=== PATIENT | female | born 1965 | race Caucasian/White ===

== ENCOUNTER 2022-12-17 01:47 | Emergency (ER) | payer OTHER, SELFPAY ==
[2022-12-17 01:50] VITALS: BP 148/70; PULSE 80; RESP 16; TEMP 36.5; O2SAT 97; BMI 29.2
--- NOTE | 2022-12-17 01:50 | ED.GENADUL1 ---
HPI - General Adult General Chief complaint: Ear Stated complaint: bug in her ear rt Time Seen by Provider: 12/17/22 01:50 History of Present Illness HPI narrative: Patient presents to emergency department complaining of about into the right ear. She states she was sleeping and started feeling like there was a bug crawling in her right ear. She denies any pain. She states just feels annoying. She came straight to the emergency department. She did not try to hold. She has not been sick with anything. Related Data Allergies Allergy/AdvReac Type Severity Reaction Status Date / Time No Known Drug Allergies Allergy Verified 12/17/22 01:58 Review of Systems ROS Status of ROS 10 or more systems reviewed and unremarkable except as noted in history and below Exam Narrative Exam Narrative: Nurses notes and vital signs reviewed and patient is not hypoxic. General: Nontoxic, Well-appearing and in no apparent distress. Skin: Warm, dry, no pallor noted. No Rash Head: Normocephalic, atraumatic. Neck: Supple, non-tender. Eye: Pupils are equal, round and EOMI. No scleral icterus. Ears, Nose, Mouth, and Throat: TM clear, There is no insect consistent with an and running around. It walked himself into the otoscope as the light was shining on it. no posterior oropharynx erythema or nasal mucosal hypertrophy, uvula is mid-line Oral mucosa is moist Cardiovascular: Regular Rate and Rhythm without murmur, gallop or rub. Respiratory: No accessory muscle use or respiratory distress. Lungs are clear to auscultation, no wheezing, rales or rhonchi Chest Wall: no tenderness Back: No midline thoracic or lumbar vertebral tenderness. No CVA tenderness Musculoskeletal: normal ROM, no calf or popliteal tenderness, no lower extremity edema/swelling GI: Abdomen is soft, non-distended. Normal bowel sounds. No masses appreciated. No tenderness to palpation. No rebound, guarding, or rigidity noted. Neurological: A&O x4. No cranial nerve dysfunction observed. No truncal ataxia. Moves all extremities. Sensation intact. Psychiatric: Cooperative and interactive. Normal mood and affect. Constitutional Vital Signs, click to edit/add: Last Vital Signs Temp 97.7 F 12/17/22 01:50 Pulse 80 12/17/22 01:50 Resp 16 12/17/22 01:50 BP 148/70 H 12/17/22 01:50 Pulse Ox 97 12/17/22 01:50 O2 Del Method Room Air 12/17/22 01:50 Course Vital Signs Vital signs: Vital Signs Temperature 97.7 F 12/17/22 01:50 Pulse Rate 80 12/17/22 01:50 Respiratory Rate 16 12/17/22 01:50 Blood Pressure 148/70 H 12/17/22 01:50 Pulse Oximetry 97 12/17/22 01:50 Oxygen Delivery Method Room Air 12/17/22 01:50 Temperature 97.7 F 12/17/22 01:50 Pulse Rate 80 12/17/22 01:50 Respiratory Rate 16 12/17/22 01:50 Blood Pressure 148/70 H 12/17/22 01:50 Pulse Oximetry 97 12/17/22 01:50 Oxygen Delivery Method Room Air 12/17/22 01:50 Medical Decision Making MDM Narrative Medical decision making narrative: ant was removed with the otoscope. Patient felt better. At this time the patient is without objective evidence of an acute process requiring hospitalization or inpatient management. The patient has remained hemodynamically stable. No additional indication for emergent studies at this time. I answered all questions. Discussed discharge instructions including standard anticipatory guidance and what should prompt a return to the emergency department, including if they get worse are not getting better or develops any new or concerning symptoms. I've given them specific time frame in which to follow-up, and who to follow-up with. The patient demonstrates understanding. Patient is nontoxic and stable for discharge with outpatient follow-up. This note was created with the assistance of a speech recognition program. Although the intention is to generate documents that actually reflects the content of the visit, no guarantees can be provided that every mistake has been identified and corrected by editing. Discharge Plan Discharge Chief Complaint: Ear Clinical Impression: Foreign body of ear, right Patient Disposition: Home, Self-Care Time of Disposition Decision: 01:56 Condition: Good Mode of Transportation: Private Vehicle Instructions: Ear Foreign Body (ED) Stand Alone Forms: Portal Instructions Discharge Date/Time: 12/17/22 02:24
--- NOTE | 2022-12-17 01:57 | PC.NURSE ---
at cart side t look into ears. When she shined the light in the right ear the FB (ant) crawled into the otoscope Patient felt immediate relief.
== END 2022-12-17 02:24 | disposition home or self-care (01) ==
PROVIDERS: Emergency Provider Emergency Medicine; PCP Nurse Practitioner
DX: T16.1XXA Foreign body in right ear, initial encounter (principal)
CPT/HCPCS: 69200; 99281

== ENCOUNTER 2022-12-26 11:19 | Outpatient (OUT) | payer OTHER, SELFPAY ==
[2022-12-26 12:15] LABS: Microalbumin Urine Random <1.3 mg/dL (<=30.0)
[2022-12-26 12:19] LABS: Estimated Average Glucose 131 mg/dL; Glycohemoglobin A1C 6.2 % (4.5-6.2)
[2022-12-26 12:31] LABS: Basophils Absolute Auto 0.1 10^3/uL (0.0-0.1); Basophils Percent Auto 0.8 % (0.2-2.0); Eosinophils Absolute Auto 0.1 10^3/uL (0.0-0.7); Eosinophils Percent Auto 1.3 % (0.9-7.0); Hematocrit 42.6 % (36.0-48.0); Hemoglobin 13.9 g/dL (12.0-16.0); Immature Granulocytes Abs Auto 0.05 10^3/uL (0.00-0.03); Immature Granulocytes Pct Auto 0.5 % (0.0-0.5); Lymphocytes Absolute Auto 2.7 10^3/uL (1.2-3.8); Lymphocytes Percent Auto 29.6 % (20.5-60.0); Mean Corpuscular HGB Conc 32.6 g/dL (29.9-35.2); Mean Corpuscular Hemoglobin 29.2 pg (26.7-34.0); Mean Corpuscular Volume 89.5 fL (81.0-99.0); Mean Platelet Volume 10.6 fL (9.5-13.5); Monocytes Absolute Auto 0.5 10^3/uL (0.3-0.8); Monocytes Percent Auto 5.8 % (1.7-12.0); Neutrophils Absolute Auto 5.7 10^3/uL (1.4-6.5); Platelet Count 305 10^3/uL (150-450); Red Blood Count 4.76 10^6/uL (4.20-5.40); Red Cell Distribution Width 13.5 % (11.0-15.0); White Blood Count 9.3 10^3/uL (4.0-11.0)
[2022-12-26 13:03] LABS: Alanine Aminotransferase 22 U/L (14-59); Albumin Globulin Ratio 0.8; Albumin Level 3.3 g/dL (3.4-5.0); Alkaline Phosphatase 113 U/L (46-116); Anion Gap 10.3; Aspartate Amino Transferase 14 U/L (15-37); BUN Creatinine Ratio 15.9; Bilirubin Total 0.3 mg/dL (0.2-1.0); Carbon Dioxide 28.7 mmol/L (21.0-32.0); Chloride 100 mmol/L (98-107); Chol HDL Ratio 3.6; Cholesterol 179 mg/dL (<=200); Estimated GFR (African America >60 (>=60); Estimated GFR (Non-African Ame >60 (>=60); Globulin 4.2 g/dL; Glucose 107 mg/dL (74-106); HDL Cholesterol 50 mg/dL (40-60); Sodium 135 mmol/L (136-145); Total Protein 7.5 g/dL (6.4-8.2); Triglycerides 154 mg/dL (<=150); VLDL CHOLESTEROL 30.8 mg/dL
[2022-12-26 14:27] LABS: Bilirubin Urine NEGATIVE (NEGATIVE); Blood Urine NEGATIVE (NEGATIVE); Clarity Urine CLEAR (CLEAR); Color Urine YELLOW (YELLOW); Glucose Urine UA NEGATIVE (NEGATIVE); Ketones Urine NEGATIVE (NEGATIVE); Leukocyte Esterase Urine NEGATIVE (NEGATIVE); Nitrite Urine NEGATIVE (NEGATIVE); Protein Urine NEGATIVE (NEG/TRACE); Urobilinogen Urine 0.2 EU/dL (0.2-1.0); pH Urine 5.5 (5.0-9.0)
[2022-12-26 14:41] LABS: RBC Urine NONE SEEN #/HPF (0-2); WBC Urine 0-2 #/HPF (NONE SEEN)
[2022-12-26 14:42] LABS: Bacteria Urine MODERATE #/HPF (NONE SEEN); Mucus Urine MODERATE (NONE SEEN)
[2022-12-26 14:43] LABS: Squamous Epithelial Cell Urine MANY #/LPF (NONE/RARE)
== END 2022-12-26 11:20 | disposition home or self-care (01) ==
LOC: LAB 11:22
PROVIDERS: PCP Nurse Practitioner; Visit Provider Nurse Practitioner
DX: E11.9 Type 2 diabetes mellitus without complications (principal); E78.5 Hyperlipidemia, unspecified; D64.9 Anemia, unspecified; R82.90 Unspecified abnormal findings in urine
CPT/HCPCS: 36415; 80053; 80061; 81001; 82043; 83036; 85025; 87086

== ENCOUNTER 2023-09-18 08:38 | Outpatient (OUT) | payer OTHER, SELFPAY ==
[2023-09-18 09:21] LABS: Basophils Absolute Auto 0.1 10^3/uL (0.0-0.1); Basophils Percent Auto 0.5 % (0.2-2.0); Eosinophils Absolute Auto 0.1 10^3/uL (0.0-0.7); Eosinophils Percent Auto 0.8 % (0.9-7.0); Hematocrit 43.1 % (36.0-48.0); Immature Granulocytes Abs Auto 0.02 10^3/uL (0.00-0.03); Immature Granulocytes Pct Auto 0.2 % (0.0-0.5); Lymphocytes Absolute Auto 2.8 10^3/uL (1.2-3.8); Lymphocytes Percent Auto 25.9 % (20.5-60.0); Mean Corpuscular HGB Conc 32.5 g/dL (29.9-35.2); Mean Corpuscular Hemoglobin 29.5 pg (26.7-34.0); Mean Corpuscular Volume 90.7 fL (81.0-99.0); Mean Platelet Volume 10.7 fL (9.5-13.5); Monocytes Absolute Auto 0.7 10^3/uL (0.3-0.8); Monocytes Percent Auto 6.2 % (1.7-12.0); Neutrophils Absolute Auto 7.3 10^3/uL (1.4-6.5); Neutrophils Percent Auto 66.4 % (43.0-75.0); Platelet Count 264 10^3/uL (150-450); Red Blood Count 4.75 10^6/uL (4.20-5.40); Red Cell Distribution Width 13.2 % (11.0-15.0); White Blood Count 10.9 10^3/uL (4.0-11.0)
[2023-09-18 09:27] LABS: Estimated Average Glucose 128 mg/dL; Glycohemoglobin A1C 6.1 % (4.5-6.2)
[2023-09-18 10:34] LABS: Alanine Aminotransferase 25 U/L (14-59); Albumin Globulin Ratio 0.8; Albumin Level 3.2 g/dL (3.4-5.0); Alkaline Phosphatase 120 U/L (46-116); Anion Gap 11.8; Aspartate Amino Transferase 19 U/L (15-37); BUN Creatinine Ratio 19.7; Bilirubin Total 0.2 mg/dL (0.2-1.0); Calcium 9.4 mg/dL (8.5-10.1); Carbon Dioxide 29.6 mmol/L (21.0-32.0); Chloride 104 mmol/L (98-107); Chol HDL Ratio 2.6; Cholesterol 154 mg/dL (<=200); Estimated GFR (African America >60 (>=60); Estimated GFR (Non-African Ame >60 (>=60); Glucose 113 mg/dL (74-106); HDL Cholesterol 59 mg/dL (40-60); LDL Cholesterol Calculated 82.2 mg/dL; Potassium 4.4 mmol/L (3.5-5.1); Sodium 141 mmol/L (136-145); Total Protein 7.2 g/dL (6.4-8.2); Triglycerides 64 mg/dL (<=150); VLDL CHOLESTEROL 12.8 mg/dL
[2023-09-18 10:50] LABS: Creatinine Urine Random 24.15 mg/dL (20.00-300.00); Microalbum Creatinine Ratio Ur 53.8 mg/g (0.0-29.9); Microalbumin Urine Random <1.3 mg/dL (<=30.0)
== END 2023-09-18 08:39 | disposition home or self-care (01) ==
LOC: LAB 08:41
PROVIDERS: PCP Nurse Practitioner; Visit Provider Nurse Practitioner
DX: I25.10 Atherosclerotic heart disease of native coronary artery without angina pectoris (principal); Z72.0 Tobacco use; E11.51 Type 2 diabetes mellitus with diabetic peripheral angiopathy without gangrene; I70.209 Unspecified atherosclerosis of native arteries of extremities, unspecified extremity; I10 Essential (primary) hypertension; E78.00 Pure hypercholesterolemia, unspecified
CPT/HCPCS: 36415; 80053; 80061; 82043; 82570; 83036; 85025; 87086

== ENCOUNTER 2023-10-17 13:13 | Outpatient (OUT) | payer OTHER, SELFPAY ==
--- NOTE | 2023-10-17 13:17 | US_ITS ---
[address] [address] Patient Name: YORDY PAGE MRN: [id number] date: 1965 Sex: F Assigned Patient Location: MAMMO Current Patient Location: Accession/Order Number: [id number] Exam Date: 10/17/2023 13:20 Report Date: 10/18/2023 06:47 At the request of: ROGERIO OLIVA Procedure: US carotid duplex BI EXAMINATION: US carotid duplex BI HISTORY: Peripheral Artery Disease I73.9 Left Carotid Bruit COMPARISON: No relevant comparison available. TECHNIQUE: Duplex Doppler ultrasound analysis of carotid and vertebral arteries. . Bilateral carotid arterial duplex examination was performed using B-mode, color flow and spectral analysis. Carotid stenosis is reported according to validated velocity parameters, similar to NASCET criteria. FINDINGS: RIGHT CAROTID ARTERY: Mild-moderate plaque within bulb and proximal ICA. RIGHT VERTEBRAL: Antegrade flow. Subclavian: PSV: 77.9 cm/s EDV: 9.8 cm/s CCA: Prox: PSV: 55.9 cm/s EDV: 13.1 cm/s Mid: PSV: 75.7 cm/s EDV: 26.3 cm/s Distal: PSV: 72.4 cm/s EDV: 28.5 cm/s BULB: PSV: 65.8 cm/s EDV: 23.0 cm/s ICA: Prox: PSV: 80.1 cm/s EDV: 24.1 cm/s Mid: PSV: 91.9 cm/s EDV: 32.1 cm/s Distal: PSV: 98.3 cm/s EDV: 43.4 cm/s ECA: PSV: 82.2 cm/s EDV: 17.6 cm/s VERTEBRAL: PSV: 101.5 cm/s EDV: 32.1 cm/s ICA/CCA ratio: PSV: 1.4 EDV: 1.5 LEFT CAROTID ARTERY: Moderate plaque within the carotid bulb resulting in up to 79% area reduction. LEFT VERTEBRAL: Antegrade flow. Subclavian: PSV: 118.1 cm/s EDV: 0.0 cm/s CCA: Prox: PSV: 87.1 cm/s EDV: 25.7 cm/s Mid: PSV: 96.7 cm/s EDV: 30.5 cm/s Distal: PSV: 80.6 cm/s EDV: 25.7 cm/s BULB: PSV: 96.7 cm/s EDV: 32.1 cm/s ICA: Prox: PSV: 106.4 cm/s EDV: 40.2 cm/s Mid: PSV: 96.7 cm/s EDV: 27.3 cm/s Distal: PSV: 91.9 cm/s EDV: 35.4 cm/s ECA: PSV: 90.2 cm/s EDV: 12.7 cm/s VERTEBRAL: PSV: 45.0 cm/s EDV: 16.4 cm/s ICA/CCA ratio: PSV: 1.3 EDV: 1.6 US/US carotid duplex BI IMPRESSION: 1. 0-49% flow stenosis within the right left carotid arteries. 2. Mild atherosclerotic disease of right bulb and proximal ICA. 3. Moderate-marked atherosclerotic disease of left carotid bulb with up to 79% area reduction. No significant change in flow velocity. Spectral Doppler US Thresholds Stenosis (%) PSV (cm/sec) VICA/VCCA 0-49 <150 <2.5 50-69 150-225 2.5-4.0 >70 >225 >4.0 Electronically authenticated by: CHERYL GILLILAND Date: 10/18/2023 06:47
--- NOTE | 2023-10-17 13:38 | MM_ITS ---
Patient Name: YORDY PAGE MR#: [id number] : 1965 Exam Date: 10/17/2023 Ordering Doctor: SATHYA Cox CNP RADIOLOGY REPORT PROCEDURE: MM TOMOSYNTHESIS SCREENING BI COMPARISON: MG MAMM SCREEN YANDY W CAD, 11/05/2019. MG MAMM SCREEN YANDY W CAD, 03/12/2018. MG MAMM RT DIAG FU, 02/02/2017. MG MAMM SCREEN YANDY W CAD, 01/23/2017. INDICATIONS: Screening Calculator Name NCI Breast Cancer Risk Assessment Tool 5 Year Breast Cancer Risk 0.90% Lifetime Breast Cancer Risk 5.70% Personal Breast Cancer No Personal Ovarian Cancer No Treatments None Family Cancers None LOCATION: [facility] BREAST COMPOSITION: There are scattered areas of fibroglandular density. FINDINGS: DIAGNOSTIC CATEGORY 2--BENIGN FINDING: RIGHT BREAST: No significant suspicious finding. No significant change has occurred. LEFT BREAST: No significant suspicious finding. Stable small chronic nodule anterior upper-outer quadrant. No significant change has occurred. RECOMMENDATIONS: ROUTINE MAMMOGRAM AND CLINICAL EVALUATION IN 12 MONTHS. PLEASE NOTE: A NORMAL MAMMOGRAM DOES NOT EXCLUDE THE POSSIBILITY OF BREAST CANCER. A CLINICALLY SUSPICIOUS PALPABLE LUMP SHOULD BE BIOPSIED. Dictated by: Terrence Lassiter M.D. on 10/17/2023 at 15:30 Approved by: Terrence Lassiter M.D. on 10/17/2023 at 15:33
== END 2023-10-17 13:14 | disposition home or self-care (01) ==
LOC: MAMMO 13:13
PROVIDERS: PCP Nurse Practitioner; Visit Provider Nurse Practitioner
DX: I73.9 Peripheral vascular disease, unspecified (principal); R09.89 Other specified symptoms and signs involving the circulatory and respiratory systems; Z12.31 Encounter for screening mammogram for malignant neoplasm of breast
CPT/HCPCS: 77063; 77067; 93880

== ENCOUNTER 2023-11-28 12:51 | Emergency (ER) | payer OTHER, SELFPAY ==
[2023-11-28 12:55] VITALS: BP 130/76; PULSE 83; TEMP 36.8; O2SAT 98; BMI 29.1
--- OUTSIDE RECORDS SUMMARY | 2023-11-28 13:06 | XMS_ITS | CCD ---
Author Organization [facility] Care Team Providers Care Cardroom Plastic Card Grader Name Role Phone PHYSICIAN, DEFAULT Unavailable Unavailable PHYSICIAN, DEFAULT Unavailable Unavailable [place], EHAB A Unavailable Unavailable [place], EHAB A Unavailable Unavailable UNKNOWN, PHYSICIAN Unavailable Unavailable AICHHOLZ, ANA Unavailable Unavailable AICHHOLZ, VOLUNTEER PATIENT REPRESENTATIVE ANA Primary Care Unavailable AICHHOLZ, VOLUNTEER PATIENT REPRESENTATIVE ANA Admitting Unavailable AICHHOLZ, VOLUNTEER PATIENT REPRESENTATIVE ANA Attending Unavailable AICHHOLZ, VOLUNTEER PATIENT REPRESENTATIVE ANA Primary Care Unavailable AICHHOLZ, VOLUNTEER PATIENT REPRESENTATIVE ANA Admitting Unavailable AICHHOLZ, VOLUNTEER PATIENT REPRESENTATIVE ANA Attending Unavailable AICHHOLZ, VOLUNTEER PATIENT REPRESENTATIVE ANA Consulting Unavailable AICHHOLZ, VOLUNTEER PATIENT REPRESENTATIVE ANA Primary Care Unavailable AICHHOLZ, VOLUNTEER PATIENT REPRESENTATIVE ANA Admitting Unavailable AICHHOLZ, VOLUNTEER PATIENT REPRESENTATIVE ANA Attending Unavailable AICHHOLZ, VOLUNTEER PATIENT REPRESENTATIVE ANA Consulting Unavailable AICHHOLZ, VOLUNTEER PATIENT REPRESENTATIVE ANA Primary Care Unavailable AICHHOLZ, VOLUNTEER PATIENT REPRESENTATIVE ANA Admitting Unavailable AICHHOLZ, VOLUNTEER PATIENT REPRESENTATIVE ANA Attending Unavailable STEPHANIE PADILLA Consulting Unavailable AICHHOLZ, VOLUNTEER PATIENT REPRESENTATIVE ANA Attending Unavailable AICHHOLZ, VOLUNTEER PATIENT REPRESENTATIVE ANA Consulting Unavailable AICHHOLZ, VOLUNTEER PATIENT REPRESENTATIVE ANA Primary Care Unavailable AICHHOLZ, VOLUNTEER PATIENT REPRESENTATIVE ANA Admitting Unavailable AICHHOLZ, ANA Attending Unavailable AICHHOLZ, ANA Attending Unavailable J LUIS SANCHEZ Attending Unavailable AICHHOLZ, ANA J Referring Unavailable AICHHOLZ, ANA J Primary Care Unavailable FAVIAN, DAVID Attending Unavailable AICHHOLZ, ANA J Referring Unavailable AICHHOLZ, ANA J Primary Care Unavailable FAVIAN, DAVID Referring Unavailable AICHHOLZ, ANA J Primary Care Unavailable Problems Problem Classification Problem Date Documented Date Episodic/Chronic Abdominal hernia (3 sources) Incisional hernia without obstruction or gangrene; Translations: [Unspecified abdominal hernia without obstruction or gangrene] Onset: 11-02-2023 Episodic Chronic obstructive pulmonary disease and bronchiectasis (2 sources) Chronic obstructive pulmonary disease, unspecified; Translations: [CHRONIC OBSTRUCTIVE PULMONARY DISEASE, UNSPECIFIED] Onset: 04-03-2018 Chronic Coronary atherosclerosis and other heart disease (1 source) Atherosclerotic heart disease of [place] coronary artery without angina pectoris; Translations: [ATHSCL HEART DISEASE OF [place] CORONARY ARTERY W/O ANG PCTRS] Onset: 04-03-2018 Chronic Diabetes mellitus without complication (4 sources) Type 2 diabetes mellitus without complications; Translations: [TYPE 2 DM WITHOUT COMPLICATIONS] Onset: 06-28-2022 Chronic Disorders of lipid metabolism (1 source) Hyperlipidemia, unspecified; Translations: [HYPERLIPIDEMIA, UNSPECIFIED] Onset: 04-03-2018 Chronic Nonspecific chest pain (1 source) Chest pain, unspecified; Translations: [CHEST PAIN, UNSPECIFIED] Onset: 04-03-2018 Episodic Occlusion or stenosis of precerebral arteries (1 source) Occlusion and stenosis of bilateral carotid arteries; Translations: [Occlusion and stenosis of bilateral carotid arteries] Onset: 11-02-2023 Chronic Other aftercare (1 source) longterm (current) use of aspirin; Translations: [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] Onset: 04-03-2018 Episodic Other infections; including parasitic (1 source) Trichomonal vulvovaginitis; Translations: [TRICHOMONAL VULVOVAGINITIS] Onset: 06-29-2022 Episodic Other lower respiratory disease (1 source) Shortness of breath; Translations: [SHORTNESS OF BREATH] Onset: 04-03-2018 Episodic Other lower respiratory disease (1 source) Hypoxemia; Translations: [HYPOXEMIA] Onset: 04-03-2018 Episodic Other nervous system disorders (1 source) Claudication Onset: 11-02-2023 Episodic Other screening for suspected conditions (not mental disorders or infectious disease) (4 sources) Abnormal result of other cardiovascular function study; Translations: [ABNORMAL RESULT OF OTHER CARDIOVASCULAR FUNCTION STUDY] Onset: 04-03-2018 Episodic Peripheral and visceral atherosclerosis (1 source) Peripheral vascular disease, unspecified; Translations: [Peripheral vascular disease, unspecified] Onset: 12-11-2019 Chronic Substance-related disorders (5 sources) Nicotine dependence, unspecified, uncomplicated; Translations: [Nicotine dependence, cigarettes, uncomplicated] Onset: 04-03-2018 Chronic Unclassified (2 sources) Unknown / UNK(Unknown) Onset: 04-03-2018 Unclassified (1 source) peripheral artery disease) Onset: 11-02-2023 Unclassified (1 source) New Patient Onset: 11-14-2023 Results Test Name Value Interpretation Reference Range Facility CULTURE URINEon 06-28-2022 CULTURE URINE Culture Observations : NO GROWTH. Normal [facility] Comment on above: Performed By: #### URCX #### [facility] [address] [address] [address] Obdulia Ahumada GLYCOHEMOGLOBIN A1Con 2022 ADA RECOMMENDATION SEE BELOW Normal [facility] Comment on above: Result Comment: ADA RECOMMENDED LIMIT 4. 0 - 6.0 ADA THERAPEUTIC TARGET < 7.0 ACTION SUGGESTED > 7.0 Performed By: #### A 1C #### [facility] [address] [place] [address] Dr. Obdulia Ahumada Glucose [Mass/Vol] 131 mg/dL Normal [facility] Comment on above: Performed By: #### A1C #### [facility] [address] [address] [address] Obdulia Ahumada HbA1c (Bld) [Mass fraction] 6.2 % Normal 4.5-6.2 [facility] Comment on above: Performed By: #### A1C #### [facility] [address] [place] [address] Dr. Obdulia Ahumada PROF CHEM 8 (BAS METB)on Anion gap [Moles/Vol] 13.7 mmol/L Normal [facility] Comment on above: Performed By: #### BMP #### [facility] [address] [place] [address] Dr. Obdulia Ahumada Calcium [Mass/Vol] 9.1 mg/dL Normal 8.5-10.1 [facility] Comment on above: Performed By: #### BMP #### [facility] [address] [place] [address] Dr. Obdulia Ahumada Chloride [Moles/Vol] 103 mmol/L Normal 98-107 [facility] Comment on above: Performed By: #### BMP #### [facility] [address] [address] [address] Obdulia Ahumada CO2 [Moles/Vol] 26.5 mmol/L Normal 21.0-32.0 [facility] Comment on above: Performed By: #### BMP #### [facility] [address] [address] [address] Obdulia Ahumada Creatinine [Mass/Vol] 0.61 mg/dL Normal 0.55-1.02 [facility] Comment on above: Performed By: #### BMP #### [facility] [address] [address] [address] Obdulia Ahumada EGFR-AF MARSHALLESE >60 Normal >=60 [facility] Comment on above: Performed By: #### BMP #### [facility] [address] [place] [address] Dr. Obdulia Ahumada EGFR-NON AF MARSHALLESE >60 Normal >=60 [facility] Comment on above: Performed By: #### BMP #### [facility] [address] [place] [address] Dr. Obdulia Ahumada Glucose [Mass/Vol] 114 mg/dL Critically high 74-106 [facility] Comment on above: Performed By: #### BMP #### [facility] [address] [address] [address] Obdulia Ahumada Potassium [Moles/Vol] 4.2 mmol/L Normal 3.5-5.1 [facility] Comment on above: Performed By: #### BMP #### [facility] [address] [address] [address] Obdulia Ahumada Sodium [Moles/Vol] 139 mmol/L Normal 136-145 [facility] Comment on above: Performed By: #### BMP #### [facility] [address] [place] [address] Dr. Obdulia Ahumada Urea nitrogen [Mass/Vol] 8.0 mg/dL Normal 7.0-18.0 [facility] Comment on above: Performed By: #### BMP #### [facility] [address] [place] [address] Dr. Obdulia Ahumada Urea nitrogen/Creatin ine [Mass ratio] 13.1 mg/mg Normal [facility] Comment on above: Performed By: #### BMP #### [facility] [address] [place] [address] LUNG CANCER SCREENINGon 0 06-18-[address] SCREENING CT Low Dose Lung Cancer Screening History: Screening for lung cancer, smoking. Current smoker Comparison: None Technique: Helical acquisition Low dose CT chest. Images reviewed in lung, soft tissue and bone windows. Findings: [All follow up of nodules are based on ACR guidelines for lung cancer screening and measurements of each nodule size must be the mean of the longest 2 axial plane perpendiculars] Nodules: No suspicious nodules by size criteria. Subtle, punctate centrilobular densities in the lung apices representing respiratory bronchiolitis. Calcified granulomas are present. Emphysema: Mild Mosaic attenuation: Minimal Bronchial wall thickening: Mild. Bronchiectasis: No Coronary artery calcium: Moderate Other portions of the chest: Normal size heart, thoracic aorta and pulmonary artery. No consolidation or pleural effusion. No suspicious lymphadenopathy in the chest. Upper abdomen: Limited. Bones: No aggressive or destructive lesion Impression: 1. ACR Assessment Category: Lung-RADS Category 1. Negative . Recommendation: Lung-RADS Category 1. Negative, continue annual screening. . Regarding coronary artery calcium, there is a growing consensus that reports for nongated low dose chest CT should include assessment of coronary artery calcium. A simple visual assessment, mild, moderate, or heavy coronary artery calcium is comparable to a Agatston scoring and strongly associated with outcomes ( related to coronary artery disease and all cause mortality). Mild is defined as isolated flecks in the coronary distribution (Agatston score <100). Heavy implies continuous or lengthy coronary artery calcium (Agatston score >1000). Moderate is for patients falling between these two extremes (Agatston score 101-1000). https://pubs.rsna.org/doi/abs/10. 1148/radiol.95994555 Download the LungRADS Assessment Categories table at this site: http://www.acr.org/Quality-Safety /Resources/LungRADS Electronically authenticated by: STEPHANIE PADILLA Date: 2022-06-18 17:41 Normal [facility] CBC AUTO DIFFon 10-27-2021 BASO # 0.1 103/ul Normal 0.0-0.1 [facility] Comment on above: Performed By: #### CBC #### [facility] [address] [place] [address] Dr. Obdulia Ahumada Basophils/100 WBC (Bld) 0.6 % Normal 0.2-2.0 [facility] Comment on above: Performed By: #### CBC #### [facility] [address] [place] [address] Dr. Obdulia Ahumada EO # 0.1 103/ul Normal 0.0-0.7 [facility] Comment on above: Performed By: #### CBC #### [facility] [address] [place] [address] Dr. Obdulia Ahumada Eosinophils/100 WBC (Bld) 1.5 % Normal 0.9-7.0 [facility] Comment on above: Performed By: #### CBC #### [facility] [address] [place] [address] Dr. Obdulia Ahumada Erythrocyte distribution width (RBC) [Ratio] 13.7 % Normal 11.0-15.0 [facility] Comment on above: Performed By: #### CBC #### [facility] [address] [place] [address] Dr. Obdulia Ahumada Hematocrit (Bld) [Volume fraction] 43.0 % Normal 36.0-48.0 [facility] Comment on above: Performed By: #### CBC #### [facility] [address] [place] [address] Dr. Obdulia Ahumada Hemoglobin (Bld) [Mass/Vol] 13.7 g/dL Normal 12.0-16.0 [facility] Comment on above: Performed By: #### CBC #### [facility] [address] [place] [address] Dr. Obdulia Ahumada IG # 0.02 10e3/ul Normal 0.00-0.03 [facility] Comment on above: Performed By: #### CBC #### [facility] [address] [place] [address] Dr. Obdulia Ahumada IG % 0.2 % Normal 0.0-0.5 [facility] Comment on above: Performed By: #### CBC #### [facility] [address] [place] [address] Dr. Obdulia Ahumada LYMPH # 2.9 103/ul Normal 1.2-3.8 [facility] Comment on above: Performed By: #### CBC #### [facility] [address] [place] [address] Dr. Obdulia Ahumada Lymphocytes/100 WBC (Bld) 32.4 % Normal 20.5-60.0 [facility] Comment on above: Performed By: #### CBC #### [facility] [address] [place] [address] Dr. Obdulia Ahumada MANUAL DIFF REQ NO Normal [facility] Comment on above: Performed By: #### CBC #### [facility] [address] [place] [address] Dr. Obdulia Ahumada MCH (RBC) [Entitic mass] 29.4 pg Normal 26.7-34.0 [facility] Comment on above: Performed By: #### CBC #### [facility] [address] [place] [address] Dr. Obdulia Ahumada MCHC (RBC) [Mass/Vol] 31.9 g/dL Normal 29.9-35.2 [facility] Comment on above: Performed By: #### CBC #### [facility] [address] [place] [address] Dr. Obdulia Ahumada MCV (RBC) [Entitic vol] 92.3 fL Normal 81.0-99.0 [facility] Comment on above: Performed By: #### CBC #### [facility] [address] [place] [address] Dr. Obdulia Ahumada MONO # 0.6 103/ul Normal 0.3-0.8 [facility] Comment on above: Performed By: #### CBC #### [facility] [address] [place] [address] Dr. Obdulia Ahumada Monocytes/100 WBC (Bld) 7.2 % Normal 1.7-12.0 [facility] Comment on above: Performed By: #### CBC #### [facility] [address] [address] [address] Obdulia Ahumada NEUT # 5.2 103/ul Normal 1.4-6.5 [facility] Comment on above: Performed By: #### CBC #### [facility] [address] [address] [address] Obdulia Ahumada Neutrophils/100 WBC (Bld) 58.1 % Normal 43.0-75.0 [facility] Comment on above: Performed By: #### CBC #### [facility] [address] [place] [address] Dr. Obdulia Ahumada Platelet mean volume (Bld) [Entitic vol] 11.4 fL Normal 9.5-13.5 [facility] Comment on above: Performed By: #### CBC #### [facility] [address] [place] [address] Dr. Obdulia Ahumada PLT 241 103/ul Normal 150-450 [facility] Comment on above: Performed By: #### CBC #### [facility] [address] [place] [address] Dr. Obdulia Ahumada RBC 4.66 106/ul Normal 4.20-5.40 [facility] Comment on above: Performed By: #### CBC #### [facility] [address] [place] [address] Dr. Obdulia Ahumada WBC 8.9 103/ul Normal 4.0-11.0 [facility] Comment on above: Performed By: #### CBC #### [facility] [address] [place] [address] Dr. Obdulia Ahumada GLYCOHEMOGLOBIN A1Con 2021 ADA RECOMMENDATION SEE BELOW Normal [facility] Comment on above: Result Comment: ADA RECOMMENDED LIMIT 4. 0 - 6.0 ADA THERAPEUTIC TARGET < 7.0 ACTION SUGGESTED > 7.0 Performed By: #### A 1C #### [facility] [address] [place] [address] Dr. Obdulia Ahumada Glucose [Mass/Vol] 123 mg/dL Normal [facility] Comment on above: Performed By: #### A1C #### [facility] [address] [address] [address] Obdulia Ahumada HbA1c (Bld) [Mass fraction] 5.9 % Normal 4.5-6.2 [facility] Comment on above: Performed By: #### A1C #### [facility] [address] [address] [address] Obdulia Ahumada LIPID PROFILEon 10-27-2021 CHOL-HDL RATIO NORM SEE BELOW Normal [facility] Comment on above: Result Comment: 3.3 - 4.4 LOW RISK 4.4 - 7.1 AVERAGE RISK 7.1 - 11.0 MODERATE RISK >11.0 HIGH RISK Performed By: #### L IPID, CMP #### [facility] [address] [address] [address] Obdulia Ahumada Cholesterol [Mass/Vol] 185 mg/dL Normal <=200 [facility] Comment on above: Performed By: #### LIPID, CMP #### [facility] [address] [address] [address] Obdulia Ahumada Cholesterol in HDL [Mass/Vol] 54 mg/dL Normal 40-60 [facility] Comment on above: Performed By: #### LIPID, CMP #### [facility] [address] [address] [address] Obdulia Ahumada Cholesterol in LDL [Mass/Vol] 103.8 mg/dL Normal [facility] Comment on above: Performed By: #### LIPID, CMP #### [facility] [address] [address] [address] Obdulia Ahumada Cholesterol.tota l/Cholesterol in HDL [Mass ratio] 3.4 {ratio} Normal [facility] Comment on above: Performed By: #### LIPID, CMP #### [facility] [address] [address] [address] Obdulia Ahumada HDL NORMAL > or = 60 mg/dl - LO W CARDIOVASCULAR RISK <40 mg/dl - HIGH CARDIOVASCULAR RISK Normal [facility] Comment on above: Performed By: #### LIPID, CMP #### [facility] [address] [address] [address] Obdulia Ahumada LDL CALC NORMAL SEE BELOW Normal [facility] Comment on above: Result Comment: <100 mg/dl OPTIMAL 100 - 129 mg/dl NEAR OR ABOVE OPTIMAL 130 - 159 mg/dl BORDERLINE HIGH 160 - 189 mg/dl HIGH >190 mg/dl VERY HIGH Performed By: #### L IPID, CMP #### [facility] [address] [place] [address] Dr. Obdulia Ahumada Triglyceride [Mass/Vol] 136 mg/dL Normal <=150 [facility] Comment on above: Performed By: #### LIPID, CMP #### [facility] [address] [place] [address] Dr. Obdulia Ahumada VLDL CALC 27.2 mg/dL Normal [facility] Comment on above: Performed By: #### LIPID, CMP #### [facility] [address] [place] [address] Dr. Obdulia Ahumada MICROALBUMIN, RAND URon 06-0 mALB <1.3 Normal <=30.0 [facility] Comment on above: Performed By: #### MALBR #### [facility] [address] [place] [address] Dr. Obdulia Ahumada PROF 14(COMP METB)on 022 Albumin [Mass/Vol] 3.5 g/dL Normal 3.4-5.0 [facility] Comment on above: Performed By: #### LIPID, CMP #### [facility] [address] [place] [address] Dr. Obdulia Ahumada Albumin/Globulin [Mass ratio] 0.9 {ratio} Normal [facility] Comment on above: Performed By: #### LIPID, CMP #### [facility] [address] [place] [address] Dr. Obdulia Ahumada ALP [Catalytic activity/Vol] 113 U/L Normal 46-116 [facility] Comment on above: Performed By: #### LIPID, CMP #### [facility] [address] [place] [address] Dr. Obdulia Ahumada ALT [Catalytic activity/Vol] 13 U/L Critically low 14-59 [facility] Comment on above: Performed By: #### LIPID, CMP #### [facility] [address] [address] [address] Obdulia Ahumada Anion gap [Moles/Vol] 12.6 mmol/L Normal [facility] Comment on above: Performed By: #### LIPID, CMP #### [facility] [address] [place] [address] Dr. Obdulia Ahumada AST [Catalytic activity/Vol] 23 U/L Normal 15-37 [facility] Comment on above: Performed By: #### LIPID, CMP #### [facility] [address] [place] [address] Dr. Obdulia Ahumada Bilirubin [Mass/Vol] 0.4 mg/dL Normal 0.2-1.0 [facility] Comment on above: Performed By: #### LIPID, CMP #### [facility] [address] [place] [address] Dr. Obdulia Ahumada Calcium [Mass/Vol] 9.1 mg/dL Normal 8.5-10.1 [facility] Comment on above: Performed By: #### LIPID, CMP #### [facility] [address] [place] [address] Dr. Obdulia Ahumada Chloride [Moles/Vol] 104 mmol/L Normal 98-107 [facility] Comment on above: Performed By: #### LIPID, CMP #### [facility] [address] [place] [address] Dr. Obdulia Ahumada CO2 [Moles/Vol] 29.6 mmol/L Normal 21.0-32.0 [facility] Comment on above: Performed By: #### LIPID, CMP #### [facility] [address] [place] [address] Dr. Obdulia Ahumada Creatinine [Mass/Vol] 0.60 mg/dL Normal 0.55-1.02 [facility] Comment on above: Performed By: #### LIPID, CMP #### [facility] [address] [place] [address] Dr. Obdulia Ahumada EGFR-AF MARSHALLESE >60 Normal >=60 [facility] Comment on above: Performed By: #### LIPID, CMP #### [facility] [address] [place] [address] Dr. Obdulia Ahumada EGFR-NON AF MARSHALLESE >60 Normal >=60 [facility] Comment on above: Performed By: #### LIPID, CMP #### [facility] [address] [place] [address] Dr. Obdulia Ahumada Globulin (S) [Mass/Vol] 4.0 g/dL Normal [facility] Comment on above: Performed By: #### LIPID, CMP #### [facility] [address] [place] [address] Dr. Obdulia Ahumada Glucose [Mass/Vol] 103 mg/dL Normal 74-106 [facility] Comment on above: Performed By: #### LIPID, CMP #### [facility] [address] [place] [address] Dr. Obdulia Ahumada Potassium [Moles/Vol] 4.2 mmol/L Normal 3.5-5.1 [facility] Comment on above: Performed By: #### LIPID, CMP #### [facility] [address] [place] [address] Dr. Obdulia Ahumada Protein [Mass/Vol] 7.5 g/dL Normal 6.4-8.2 [facility] Comment on above: Performed By: #### LIPID, CMP #### [facility] [address] [place] [address] Dr. Obdulia Ahumada Sodium [Moles/Vol] 142 mmol/L Normal 136-145 [facility] Comment on above: Performed By: #### LIPID, CMP #### [facility] [address] [place] [address] Dr. Obdulia Ahumada Urea nitrogen [Mass/Vol] 9.0 mg/dL Normal 7.0-18.0 [facility] Comment on above: Performed By: #### LIPID, CMP #### [facility] [address] [place] [address] Dr. Obdulia Ahumada Urea nitrogen/Creatin ine [Mass ratio] 15.0 mg/mg Normal [facility] Comment on above: Performed By: #### LIPID, CMP #### [facility] [address] [place] [address] Dr. Obdulia Ahumada UA RANDOM W/MICROSCOPICon BACTERIA TRACE Abnormal NONE SEEN [facility] Comment on above: Performed By: #### UAMIC #### [facility] [address] [place] [address] Dr. Obdulia Ahumada Bilirubin Ql (U) Negative Normal NEGATIVE [facility] Comment on above: Performed By: #### UAMIC #### [facility] [address] [place] [address] Dr. Obdulia Ahumada CAST NONE SEEN Normal NONE SEEN [facility] Comment on above: Performed By: #### UAMIC #### [facility] [address] [place] [address] Dr. Obdulia Ahumada Clarity (U) CLEAR Normal CLEAR [facility] Comment on above: Performed By: #### UAMIC #### [facility] [address] [place] [address] Dr. Obdulia Ahumada Color (U) LT. YELLOW Normal YELLOW [facility] Comment on above: Performed By: #### UAMIC #### [facility] [address] [place] [address] Dr. Obdulia Ahumada Crystals LM Nom (Urine sed) NONE SEEN Normal NONE SEEN [facility] Comment on above: Performed By: #### UAMIC #### [facility] [address] [place] [address] Dr. Obdulia Ahumada Epithelial cells LM Ql (Urine sed) FEW Abnormal NONE SEEN /RARE [facility] Comment on above: Performed By: #### UAMIC #### [facility] [address] [place] [address] Dr. Obdulia Ahumada Glucose Ql (U) Negative Normal NEGATIVE [facility] Comment on above: Performed By: #### UAMIC #### [facility] [address] [place] [address] Dr. Obdulia Ahumada Hemoglobin Ql (U) Negative Normal NEGATIVE [facility] Comment on above: Performed By: #### UAMIC #### [facility] [address] [place] [address] Dr. Obdulia Ahumada Ketones Ql (U) Negative Normal NEGATIVE [facility] Comment on above: Performed By: #### UAMIC #### [facility] [address] [place] [address] Dr. Obdulia Ahumada LEUKOCYTES LARGE Abnormal NEGATIVE [facility] Comment on above: Performed By: #### UAMIC #### [facility] [address] [place] [address] Dr. Obdulia Ahumada MUCOUS NONE SEEN Normal NONE SEEN [facility] Comment on above: Performed By: #### UAMIC #### [facility] [address] [place] [address] Dr. Obdulia Ahumada Nitrite Ql (U) Negative Normal NEGATIVE [facility] Comment on above: Performed By: #### UAMIC #### [facility] [address] [place] [address] Dr. Obdulia Ahumada pH (U) 7.5 [pH] Normal 5-9 [facility] Comment on above: Performed By: #### UAMIC #### [facility] [address] [place] [address] Dr. Obdulia Auhmada RBC NONE SEEN Abnormal 0-2 [facility] Comment on above: Performed By: #### UAMIC #### [facility] [address] [place] [address] Dr. Obdulia Ahumada SPEC GRAVITY 1.015 Normal 1.005-<=1. 025 [facility] Comment on above: Performed By: #### UAMIC #### [facility] [address] [place] [address] Dr. Obdulia Ahumada TRICH SEEN Abnormal NONE SEEN [facility] Comment on above: Performed By: #### UAMIC #### [facility] [address] [place] [address] Dr. Obdulia Ahumada UA PROTEIN Negative Normal NEGATIVE/ TRACE [facility] Comment on above: Performed By: #### UAMIC #### [facility] [address] [place] [address] Dr. Obdulia Ahumada Urobilinogen Qn (U) 1.0 {Diaz'U}/dL Normal 0.2 - 1.0 [facility] Comment on above: Performed By: #### UAMIC #### [facility] [address] [place] [address] Dr. Obdulia Ahumada WBC 2-5 Abnormal NONE SEEN [facility] Comment on above: Performed By: #### UAMIC #### [facility] [address] [place], [place] [address] Dr. Obdulia Ahumada Cardiovascular Lab Reporton 04-04-2018 Cardiovascular Lab Report [facility] Patient Name: Alia Page MR #: [id number] Physician: Florinda Clancy M.D.Department of Service Date: 04/03/2018Medicine Birthdate: 1965[facility] [place], [place] [address]Qyqxm Fax Cardiovascular Laboratory ReportFINAL IMPRESSIONS:1. Moderate angiographic, hemodynamically non-significant stenosis of the left anterior descending as assessed by instantaneous wave-free ratio (iFR).2. Moderate angiographic, hemodynamically non-significant stenosis of the right coronary artery as assessed by instantaneous wave-free ratio (iFR).3. Ksof-as-irykjfoy disease of the left circumflex coronary artery.4. Normal global left ventricular systolic function by noninvasive imaging.5. Mildly elevated right-sided heart pressures with normal wedge pressure.6. Normal cardiac output/cardiac index.7. Resting hypoxia.8. Abnormal vasculature in the pelvic region arising from the external iliac artery.RECOMMENDATIONS:1. The patient will undergo a CT scan of the abdomen and pelvis to evaluate for any pelvic abnormalities causing the extra vessels seen e.g uterine fibroids, bladder masses etc.2. Aggressive cardiovascular risk factor modification.3. Optimization of medical management; continue aspirin, increase Lipitor to 80 mg a day with a followup lipid profile and liver function test in 6-8 weeks, add metoprolol 25 mg p.o. b.i.d.4. She will be referred to pulmonology in our [place] office given her symptoms of resting hypoxia and need for further evaluation and management.5. Follow up with CLIFFORD Montenegro as scheduled.6. Follow up with me in the [place] [facility] in the next 1 to 2 months.PROCEDURES: Limited femoral angiography, bilateral selective coronaryangiography, right heart catheterization, instantaneous wave-free ratio ofthe left anterior descending coronary artery, instantaneous wave-free ratioof the right coronary artery, placement of a 6-Marshallese MynxGrip closuredevice.METHODS: After risks, benefits, and alternatives were explained, writteninformed consent was obtained. The patient was prepped and draped in usualsterile fashion over the right groin. Using 1% lidocaine solution, localinfiltration anesthesia was achieved. Using a modified Seldingertechnique, access to the right common femoral vein and artery was obtainedwith 6-Marshallese 11 cm sheath was placed in each.Baseline femoral arterial angiography was performed. This was repeated onthe digital subtraction, given concerns regarding abnormal vessel seen inthe iliac region.Right heart catheterization was performed using a Naylor catheter via thevenous sheath. Pressures were measured in the right atrium, rightventricle, pulmonary artery, and pulmonary capillary wedge positions.Oxygen saturations were obtained and cardiac output/cardiac index wascalculated using the Tony principle.Bilateral selective coronary angiography was then performed using JL4 andJR4 catheters. After reviewing the images, it was elected to proceed withthe physiological assessment of the moderate stenosis visualized.A 6-Marshallese XB 3.0 guide catheter was advanced over the J-wire and coaxiallyengaged into the left main ostium. The volcano pressure wire was advancedthrough the catheter with pressures equalized just distal to the exiting.The wire was used to traverse the suspect stenosis and position distally.An instantaneous wave-free ratio was calculated. The wire was removed.Final angiography showed NIKKO-3 flow with no dissection, thrombus, ordistal wire trauma. The guide catheter was removed.A 6-Marshallese JR4 guide catheter was advanced in and coaxially engaged intothe right coronary ostium. The volcano pressure wire was advanced throughthe catheter with pressures normalized just off the exiting. The wire wasused to traverse the suspect stenosis and positioned distally.Instantaneous wave-free ratio was measured. The wire was removed. Finalangiography showed NIKKO-3 flow with no dissection, thrombus, or distal wiretrauma. At this point, it was elected to conclude the procedure.Repeat limited angiography was performed of the femoral region. A 6-FrenchMynxGrip closure device was deployed per protocol achieving optimalhemostasis. Overall, the patient tolerated the procedure well. There wereno overt complications. She was to be [facility] instable condition.FINDINGS:Hemodynamics:1 . RA 7.2. RV 44/9, 12.3. PA 44/17 (29).4. PCWP 12.5. PPG 16.6. AO 114/63 (83).7. Cardiac output 5.56/cardiac index 3.09.8. AO sats 86%/PA sats 62%.LEFT VENTRICULOGRAPHY: This was not performed. Ejection fraction is 59%on stress testing.CORONARY ARTERIES:1. Left main coronary artery: This arises from the left coronary cusp. It bifurcates into the left anterior descending and left circumflex coronary arteries. It shows no significant stenosis.2. Left anterior descending coronary artery. It shows plaque disease proximally. There is a 60% angiographic stenosis in the midportion of the vessel adjacent to a dhfak-qr-atmbtelp sized 3rd diagonal branch. Instantaneous fractional ratio across this lesion is 0.91. Final images showed NIKKO-3 flow with no dissection, thrombus, or distal wire trauma. Note that the left anterior descending and diagonal branches are of small caliber.3. Left circumflex coronary artery: This shows mild plaque and luminal irregularities with a short segment 30%-40% stenosis in the mid portion adjacent to the 3rd obtuse marginal branch.4. Right coronary artery: This is a dominant vessel giving rise to the posterior descending and posterolateral branches. It is of small caliber with significant luminal irregularities distally. The mid portion shows a long segment 40%-50% stenosis with heavy calcification. The lesion is hazy in appearance. Instantaneous wave-free ratio is 0.93. Final images showed NIKKO-3 flow with no dissection, thrombus, or distal wire trauma. Limited femoral angiography: This shows mild plaque. There is evidence of abnormal vessels arising from the external iliac artery and directed towards the pelvis. These do not appear to be consistent with dye extravasation or vessel trauma and are likely supplying a pelvic organ/abnormality. The common femoral artery shows plaque disease at the access location. Anatomy suitable for closure device.INDICATIONS: The patient is a 52-year-old with multiple risk factors foratherosclerotic heart disease, who was found to have mild 3-vessel diseaseseveral years ago. She presented with exertional shortness of breath,chest pressure, and a stress test suggestive of an anteroapical perfusiondefect. Findings and management strategies are outlined above.Electronically Signed by:Florinda Clancy M.D. 04/10/2018 03:51 P Florinda Clancy M.D.Date Dict: 04/03/2018/10:55 Carole/Florinda Clancy M.D.Date Trans: 04/04/2018 05:07 A/JoannaN_JN:[id number]: Ana Cox N.P. [facility] [address] [address] [facility] Encounters Encounter Date Encounter Type Care Provider Facility Start: 11-23-2023 End: 11-23-2023 ambulatory [facility] Start: 11-14-2023 End: 11-14-2023 ambulatory [facility] Start: 11-02-2023 End: 11-02-2023 ambulatory [facility] Start: 10-12-2023 End: 10-12-2023 ambulatory ANA AICHHOLZ Not Available Start: 09-11-2023 End: 09-11-2023 ambulatory ANA AICHHOLZ Not Available Start: 06-28-2022 End: 06-29-2022 ambulatory VOLUNTEER PATIENT REPRESENTATIVE ANA AICHHOLZ Facility:[facility] Start: 06-17-2022 End: 06-18-2022 ambulatory VOLUNTEER PATIENT REPRESENTATIVE ANA AICHHOLZ Facility:[facility] Start: 11-04-2021 ambulatory VOLUNTEER PATIENT REPRESENTATIVE ANA AICHHOLZ Facil ity:[facility] Start: 10-27-2021 End: 10-28-2021 ambulatory VOLUNTEER PATIENT REPRESENTATIVE ANA AICHHOLZ Facility:[facility] Start: 07-27-2021 ambulatory VOLUNTEER PATIENT REPRESENTATIVE ANA AICHHOLZ Facil ity:[facility] Start: 04-03-2018 End: 04-04-2018 Patient encounter procedure FLORINDA CLANCY Facility:[facility] Start: 03-22-2018 End: 03-23-2018 Patient encounter procedure DEFAULT PHYSICIAN Facility:[facility] Payers Date Payer Category Payer Self-pay [id number] 1965 Unknown [id number] 2.16.8 [id number] 1965 Unknown [id number] 2.16.8 [id number] 1965 Unknown [id number] 2.16.84 [id number] 1965 Unknown [id number] 2.16.84 [id number] 1966 Unknown [id number] 2.16.84 [id number] 1966 Unknown [id number] 2.16.84 [id number] 1966 Unknown [id number] 2.16.84 [id number] 1966 Unknown [id number] 2.16.84 [id number] 1966 Unknown [id number] 2.16.84 [id number] 1966 Unknown [id number] 2.16.8 [id number] 1966 Unknown [id number] 2.16.8 [id number] 1966 Unknown [id number] 2.16.8 [id number] 1959 Unknown [id number] Unknown Summary Purpose Family History No Family History Records FoundNo Family History Records FoundNo Family History Records FoundNo Family History Records FoundNo Family History Records FoundNo Family History Records Found Advance Directives No Advanced Directives Records FoundNo Advanced Directives Records FoundNo Advanced Directives Records FoundNo Advanced Directives Records FoundNo Advanced Directives Records FoundNo Advanced Directives Records Found Additional Source Comments INFORMATION SOURCE (unrecogn ized section and content) DATE CREATED AUTHOR 05/06/2018 [facility] DATE CREATED AUTHOR AUTHOR'S KEIRYIZ ATTIARA 06/29/2022 [facility] DATE CREATED AUTHOR AUTHOR'S ORGANIZ ATION 10/14/2023 [facility] EPIC DATE CREATED AUTHOR AUTHOR'S ORGANIZ ATION 11/04/2023 [facility] DATE CREATED AUTHOR AUTHOR'S ORGANIZ ATION 11/16/2023 [facility] DATE CREATED AUTHOR AUTHOR'S ORGANIZ ATION 11/25/2023 [facility] FOR RECORDS PERTAINING TO PATIENTS WHO ARE OR HAVE BEEN ENROLLED IN A CHEMICAL DEPENDENCY/SUBSTANCEABUSE PROGRAM, SOME INFORMATION MAY BE OMITTED. This clinical summary was aggregated from multiple sources. Caution should be exercised in using it in the provision of clinical care. This summary normalizes information from multiple sources, and as a consequence, information in this document may materially change the coding, format and clinical context of patient data. In addition, data may be omitted in some cases. CLINICAL DECISIONS SHOULD BE BASED ON THE PRIMARY CLINICAL RECORDS. [employer] provides no warranty or guarantee of the accuracy or completeness of information in this document.
--- NOTE | 2023-11-28 13:08 | XR_ITS ---
The [address] [address] Patient Name: YORDY PAGE MRN: [id number] date: 1965 Sex: F Assigned Patient Location: ER Current Patient Location: ER Accession/Order Number: [id number] Exam Date: 11/28/2023 13:31 Report Date: 11/28/2023 14:06 At the request of: TIM LECHUGA Procedure: XR humerus RT IMAGES REVIEWED: XR humerus RT, XR cervical spine 2-3V COMPARISON: None available. CLINICAL INDICATION: Atraumatic pain FINDINGS/IMPRESSION: 1. No evidence of acute osseous abnormality of the cervical spine or right humerus. 2. Mild degenerative change C6-C7. Apparent mild-moderate facet arthropathy of the mid-lower cervical spine. No spondylolisthesis. 3. Mild degenerative change right AC joint. 4. Follow-up nonemergent MRI C-spine could better evaluate for foraminal narrowing given apparent radiculopathy symptoms if clinically indicated. Electronically authenticated by: GUERITA BUI Date: 11/28/2023 14:06
--- NOTE | 2023-11-28 13:08 | XR_ITS ---
The [address] [address] Patient Name: YORDY PAGE MRN: [id number] date: 1965 Sex: F Assigned Patient Location: ER Current Patient Location: ER Accession/Order Number: [id number] Exam Date: 11/28/2023 13:31 Report Date: 11/28/2023 14:06 At the request of: TIM LECHUGA Procedure: XR cervical spine 2-3V IMAGES REVIEWED: XR humerus RT, XR cervical spine 2-3V COMPARISON: None available. CLINICAL INDICATION: Atraumatic pain FINDINGS/IMPRESSION: 1. No evidence of acute osseous abnormality of the cervical spine or right humerus. 2. Mild degenerative change C6-C7. Apparent mild-moderate facet arthropathy of the mid-lower cervical spine. No spondylolisthesis. 3. Mild degenerative change right AC joint. 4. Follow-up nonemergent MRI C-spine could better evaluate for foraminal narrowing given apparent radiculopathy symptoms if clinically indicated. Electronically authenticated by: GUERITA BUI Date: 11/28/2023 14:06
--- NOTE | 2023-11-28 13:09 | ED.GENADUL1 ---
HPI HPI - General Adult General Stated complaint: UPPER EXTREMITY PAIN Time Seen by Provider: 11/28/23 13:02 Source: patient Mode of arrival: walk-in Limitations: no limitations History of Present Illness HPI narrative: 58-year-old female presents for right upper arm pain. She has had for 3 days and there is no associated trauma. Hurts from just below the shoulder down to just above the elbow. It hurts to move her arm away from her body. No neck pain shoulder pain or elbow pain specifically. It does not radiate down to her lower arm or hand. No numbness or tingling. She has never had the symptoms previously. It hurts much more when she moves it and it does not hurt at all if she does not move it. Related Data Previous Rx's ?Medication ?Instructions ?Recorded prednisone 10 mg tablet See Rx Instructions .Route 11/28/23 .COMPLEX #18 tabs Allergies Allergy/AdvReac Type Severity Reaction Status Date / Time No Known Drug Allergies Allergy Verified 11/28/23 12:54 Opioid HPI Opioid Management Most Recent Opioid Data: Last Pain Scale 9 11/28/23 13:21 Last MAR Pain Assessment 11/28/23 13:21 Review of Systems ROS Narrative A ten point review of systems is negative except as noted above. Exam Narrative Exam Narrative: Nurses note and vital signs reviewed and patient is not hypoxic. General: The patient appears well and in no apparent distress. Patient is resting comfortably on cart. Skin: Warm, dry, no pallor noted. There is no rash noted. Head: Normocephalic, atraumatic Eye: Normal conjunctiva, no drainage Ears, Nose, Mouth, and Throat: oral mucosa is moist. Nares patent. Cardiovascular: Regular Rate and Rhythm Respiratory: Patient is in no distress, no accessory muscle use, lungs are clear to auscultation, no wheezing, rales or rhonchi Back: non-tender GI: Soft and nontender Musculoskeletal: The right arm is examined. No bruise rash or swelling. She has no palpable tenderness. She is reluctant to abduct her arm. Radial pulse 2+ and fingers have full range of motion as does the wrist. Elbow also has full range of motion Neurological: Awake and alert Psychiatric: Cooperative Constitutional Vital Signs, click to edit/add: Last Vital Signs Temp 98.3 F 11/28/23 12:55 Pulse 83 11/28/23 12:55 Resp 20 11/28/23 12:55 BP 130/76 11/28/23 12:55 Pulse Ox 98 11/28/23 12:55 O2 Del Method Room Air 11/28/23 12:55 Course Vital Signs Vital signs: Vital Signs Temperature 98.3 F 11/28/23 12:55 Pulse Rate 83 11/28/23 12:55 Respiratory Rate 20 11/28/23 12:55 Blood Pressure 130/76 11/28/23 12:55 Pulse Oximetry 98 11/28/23 12:55 Oxygen Delivery Method Room Air 11/28/23 12:55 Temperature 98.3 F 11/28/23 12:55 Pulse Rate 83 11/28/23 12:55 Respiratory Rate 20 11/28/23 12:55 Blood Pressure 130/76 11/28/23 12:55 Pulse Oximetry 98 11/28/23 12:55 Oxygen Delivery Method Room Air 11/28/23 12:55 Medical Decision Making MDM Narrative Medical decision making narrative: X-ray findings are discussed with the patient and she is going to follow-up with her PCP. In the meantime she will be prescribed prednisone and will check her sugar once or twice a day. Treatment diagnosis and follow-up were discussed with the patient. Differential Diagnosis Differential Diagnosis: Cervical radiculopathy, muscle strain Imaging Data Humerus and C-spine x-rays: Radiologist's impression: FINDINGS/IMPRESSION: 1. No evidence of acute osseous abnormality of the cervical spine or right humerus. 2. Mild degenerative change C6-C7. Apparent mild-moderate facet arthropathy of the mid-lower cervical spine. No spondylolisthesis. 3. Mild degenerative change right AC joint. 4. Follow-up nonemergent MRI C-spine could better evaluate for foraminal narrowing given apparent radiculopathy symptoms if clinically indicated. Electronically authenticated by: GUERITA BUI Date: 11/28/2023 14:06 Discharge Plan Discharge Stand Alone Forms: Portal Instructions Clinical Impression: Cervical radiculopathy Patient Disposition: Home, Self-Care Time of Disposition Decision: 14:40 Condition: Good Mode of Transportation: Private Vehicle Prescriptions / Home Meds: New prednisone 10 mg tablet See Rx Instructions .ROUTE .COMPLEX Qty: 18 0RF Rx Instructions: 3 by mouth daily for three days then 2 by mouth daily for three days then 1 by mouth daily for three days Print Language: Ukrainian Instructions: Cervical Radiculopathy (ED) Additional Instructions: Check your sugars at least once a day Referrals: Ana Cox NP [Primary Care Provider] - 1 week
[2023-11-28] MEDS: KETOROLAC TROMETHAMINE 60 MG/2 ML VIAL IM (13:21)
[2023-11-28 14:44] VITALS: PULSE 84; O2SAT 98
== END 2023-11-28 14:49 | disposition home or self-care (01) ==
PROVIDERS: Emergency Provider Emergency Medicine; PCP Nurse Practitioner
DX: M54.12 Radiculopathy, cervical region (principal)
CPT/HCPCS: 72040; 73060; 96372; 99285; J1885

== ENCOUNTER 2023-12-06 10:50 | Outpatient (OUT) | payer OTHER, SELFPAY ==
--- NOTE | 2023-12-06 10:57 | CT_ITS ---
The [address] [address] Patient Name: YORDY PAGE MRN: [id number] date: 1965 Sex: F Assigned Patient Location: [place] Current Patient Location: [place] Accession/Order Number: [id number] Exam Date: 12/06/2023 11:23 Report Date: 12/06/2023 16:54 At the request of: J LUIS SANCHEZ Procedure: CT angio neck CT angio neck, 12/06/2023 11:23 AM EDT INDICATION: Peripheral Artery Disease I73.9 COMPARISON: Prior ultrasound of carotid arteries dated 10/17/2023 TECHNIQUE: Pre and postcontrast enhanced CT angiography of the neck were acquired with contrast .3 D MIP images were reconstructed in sagittal and coronal format at the scanner and were evaluated at the time of dictation. Dose reduction techniques were achieved by using automated exposure control and/or adjustment of mA and/or kV according to patient size and/or use of iterative reconstruction technique. FINDINGS: The great vessels enhance normally. No filling defects are identified within the carotid arteries. There is moderate stenosis at origin of the right and mild stenosis at the origin of left internal carotid arteries. No abnormality of visualized portion of yocha dehe of [place] is noted. No abnormality of the vertebral and basilar arteries is noted. No mass, mass effect or midline shift or hemorrhage in the visualized portions of brain parenchyma is noted. No significant soft tissue abnormality within the neck is noted. The visualized portion of the lungs is unremarkable. No suspicious bone lesion is noted. Multilevel degenerative changes of cervical spine. CT/CT angio neck IMPRESSION: Moderate stenosis at origin of the right and mild stenosis at origin of left internal carotid arteries. No CT evidence of embolus or severe stenosis or dissection in the major arteries in the current study. CAROTID STENOSIS REFERENCE: MILD = <50% stenosis. MODERATE = 50-69% stenosis. SEVERE = >70% stenosis. Electronically authenticated by: PIA CARDENAS Date: 12/06/2023 16:54
--- NOTE | 2023-12-06 10:57 | US_ITS ---
[address] [address] Patient Name: YORDY PAGE MRN: [id number] date: 1965 Sex: F Assigned Patient Location: US Current Patient Location: US Accession/Order Number: [id number] Exam Date: 12/06/2023 10:58 Report Date: 12/06/2023 11:46 At the request of: J LUIS SANCHEZ Procedure: US abdominal aortic aneurysm EXAMINATION: US abdominal aortic aneurysm HISTORY: Peripheral Artery Disease I73.9 COMPARISON: No relevant comparison available. TECHNIQUE: Ultrasound examination of the retroperitoneal area was performed, with a focused evaluation of the abdominal aorta. FINDINGS: Proximal aorta: 2.1 x 1.8 cm Mid aorta: 2.9 x 2.9 cm Distal aorta: 3.2 x 2.5 cm Right common iliac artery: 1.0 x 1.2 cm Left common iliac artery: 1.0 x 1.1 cm Moderate soft and calcific atherosclerotic plaque US/US abdominal aortic aneurysm IMPRESSION: Fusiform aneurysm of the distal abdominal aorta measuring up to 3.2 cm Electronically authenticated by: JANET HERNANDEZ Date: 12/06/2023 11:46
--- NOTE | 2023-12-06 14:24 | VEIN_ITS ---
[facility] [place] [address] Patient Name: YORDY PAGE MRN: [id number] date: 1965 Sex: F Assigned Patient Location: US Current Patient Location: Accession/Order Number: [id number] Exam Date: 12/06/2023 14:24 Report Date: 12/07/2023 07:19 At the request of: J LUIS SANCHEZ Procedure: VC SEGMENTAL PRESSURES EXAM: VC SEGMENTAL PRESSURES HISTORY: I73.90 COMPARISON: None. FINDINGS: Segmental pressures presented as follows (right, left) in mmHg. Brachial: 123, 139 Upper thigh: 165, 160 Lower thigh: 145, 171 Calf: 155, 155 DPA: 147, 137 MED[employer]AL PL[employer] PICKER: 147, 154 1st Toe: 85, 109 KARLEE: 1.06, 1.11 TBI: 0.61, 0.78 The ABIs are Normal The TBI's suggest low-risk of ischemia on the right, normal on the left PVR waveforms: Right leg: Thigh: Normal Above knee: Normal Below knee: Normal Right ankle: Normal Left leg: Thigh: Normal Above knee: Normal Below knee: Normal Right ankle: Normal VEIN/VC SEGMENTAL PRESSURES IMPRESSION: Slightly low TBI on the right suggests a low risk of ischemia Otherwise normal exam Electronically authenticated by: JANET HERNANDEZ Date: 12/07/2023 07:19
== END 2023-12-06 10:51 | disposition home or self-care (01) ==
LOC: US 10:50
PROVIDERS: PCP Nurse Practitioner; Visit Provider Student in an Organized Health Care Education/Training Program
DX: I73.9 Peripheral vascular disease, unspecified (principal); I65.23 Occlusion and stenosis of bilateral carotid arteries; I71.40 Abdominal aortic aneurysm, without rupture, unspecified
CPT/HCPCS: 70498; 76775; 93923; Q9967

== ENCOUNTER 2024-03-07 10:40 | Outpatient (OUT) | payer OTHER, SELFPAY ==
--- OUTSIDE RECORDS SUMMARY | 2024-03-07 10:51 | XMS_ITS | CCD ---
Author Organization [facility] Care Team Providers Care Application Operations Engineer Name Role Phone PHYSICIAN, DEFAULT Unavailable Unavailable PHYSICIAN, DEFAULT Unavailable Unavailable ELTAHAWY, EHAB A Unavailable Unavailable ELTAHAWY, EHAB A Unavailable Unavailable UNKNOWN, PHYSICIAN Unavailable Unavailable AICHHOLZ, ANA Unavailable Unavailable AICHHOLZ, DARKLIGHT INSPECTOR ANA Primary Care Unavailable AICHHOLZ, DARKLIGHT INSPECTOR ANA Admitting Unavailable AICHHOLZ, DARKLIGHT INSPECTOR NAA Attending Unavailable AICHHOLZ, DARKLIGHT INSPECTOR ANA Primary Care Unavailable AICHHOLZ, DARKLIGHT INSPECTOR ANA Admitting Unavailable AICHHOLZ, DARKLIGHT INSPECTOR ANA Attending Unavailable AICHHOLZ, DARKLIGHT INSPECTOR ANA Consulting Unavailable AICHHOLZ, DARKLIGHT INSPECTOR ANA Primary Care Unavailable AICHHOLZ, DARKLIGHT INSPECTOR ANA Admitting Unavailable AICHHOLZ, DARKLIGHT INSPECTOR ANA Attending Unavailable AICHHOLZ, DARKLIGHT INSPECTOR ANA Consulting Unavailable AICHHOLZ, DARKLIGHT INSPECTOR ANA Primary Care Unavailable AICHHOLZ, DARKLIGHT INSPECTOR ANA Admitting Unavailable AICHHOLZ, DARKLIGHT INSPECTOR ANA Attending Unavailable STEPHANIE PADILLA Consulting Unavailable AICHHOLZ, DARKLIGHT INSPECTOR ANA Attending Unavailable AICHHOLZ, DARKLIGHT INSPECTOR ANA Consulting Unavailable AICHHOLZ, DARKLIGHT INSPECTOR ANA Primary Care Unavailable AICHHOLZ, DARKLIGHT INSPECTOR ANA Admitting Unavailable FAVIAN, DAVID Referring Unavailable AICHHOLZ, ANA J Primary Care Unavailable AICHHOLZ, ANA Attending Unavailable AICHHOLZ, ANA Attending Unavailable AICHHOLZ, ANA Attending Unavailable J LUIS SANCHEZ Attending Unavailable AICHHOLZ, ANA J Referring Unavailable AICHHOLZ, ANA J Primary Care Unavailable J LUIS SANCHEZ Attending Unavailable AICHHOLZ, ANA J Referring Unavailable AICHHOLZ, ANA J Primary Care Unavailable FAVIAN, DAVID Attending Unavailable AICHHOLZ, ANA J Referring Unavailable AICHHOLZ, ANA J Primary Care Unavailable DAVID BALLESTEROS Attending Unavailable ANA COX Referring Unavailable ANA COX Primary Care Unavailable Problems Problem Classification Problem Date Documented Date Episodic/Chronic Abdominal hernia (3 sources) Unspecified abdominal hernia without obstruction or gangrene; Translations: [Incisional hernia without obstruction or gangrene] Onset: 11-02-2023 Episodic Chronic obstructive pulmonary disease and bronchiectasis (2 sources) Chronic obstructive pulmonary disease, unspecified; Translations: [CHRONIC OBSTRUCTIVE PULMONARY DISEASE, UNSPECIFIED] Onset: 04-03-2018 Chronic Coronary atherosclerosis and other heart disease (1 source) Atherosclerotic heart disease of [place] coronary artery without angina pectoris; Translations: [ATHSCL HEART DISEASE OF [place] CORONARY ARTERY W/O ANG PCTRS] Onset: 04-03-2018 [...] Onset: 11-02-2023 Chronic Other aftercare (1 source) care home (current) use of aspirin; Translations: [[facility] (CURRENT) USE OF ASPIRIN] Onset: 04-03-2018 Episodic [...] / UNK(Unknown) Onset: 04-03-2018 Unclassified (1 source) Infrarenal abdominal aortic aneurysm, without rupture; Translations: [Infrarenal abdominal aortic aneurysm, without rupture] Onset: 12-14-2023 Unclassified (1 source) peripheral artery disease) Onset: 11-02-2023 Unclassified (1 source) New Patient Onset: 11-14-2023 Results Test Name Value Interpretation Reference Range Facility CT ABDOMEN AND PELVIS WO CON Ton 11-27-2023 CT ABDOMEN AND PELVIS WO CONT CT ABDOMEN AND PELVIS WO CONT CLINICAL INFORMATION: Abdominal hernia without obstruction and without gangrene, recurrence not specified, unspecified hernia type. Abdominal pain TECHNIQUE: CT Abdomen and Pelvis without intravenous contrast. All CT scans at this facility use dose modulation, iterative reconstruction, and/or weight based dosing when appropriate to reduce radiation dose to as low as reasonably achievable. COMPARISON: No relevant prior studies available. FINDINGS: No pleural or pericardial effusions lung bases. There is no lower lung consolidation. There is a calcified right lower lung granuloma. Noncontrast evaluation of the liver, adrenal glands, pancreas appear unremarkable. Multiple calcified splenic granulomas. Gallbladder is present. Postoperative changes of the aorta with aorto iliac bypass. Small bowel is nondilated. No free pelvic fluid. Uterus is present. No enlarged pelvic lymph nodes. Urinary bladder is decompressed. Degenerative changes of the thoracolumbar spine. No vertebral body height loss. Ventral anterior abdominal wall hernia some containing fat with the largest containing a segment of the transverse colon. Small bowel obstruction. IMPRESSION: * Ventral abdominal wall hernias one containing the transverse colon without proximal obstruction. There are smaller multiple ventral abdominal wall fat containing hernias as well. Finalized by Anoop Castro MD on 11/27/2023 5:58 PM Normal [facility] CULTURE URINEon 06-28-2022 CULTURE URINE Culture Observations : NO GROWTH. Normal [facility] Comment on above: Performed By: #### URCX #### [facility] [address] [place] [address] Dr. Obdulia Ahumada GLYCOHEMOGLOBIN A1Con 2022 ADA RECOMMENDATION SEE BELOW Normal [facility] Comment on above: Result Comment: ADA RECOMMENDED LIMIT 4. 0 - 6.0 ADA THERAPEUTIC TARGET < 7.0 ACTION SUGGESTED > 7.0 Performed By: #### A 1C #### [facility] [address] [place] [address] Dr. Obdulia Ahumada Glucose [Mass/Vol] 131 mg/dL Normal [facility] Comment on above: Performed By: #### A1C #### [facility] [address] [place] [address] Dr. Obdulia Ahumada HbA1c (Bld) [Mass fraction] 6.2 % Normal 4.5-6.2 [facility] Comment on above: Performed By: #### A1C #### [facility] [address] [place] [address] Dr. Obdulia Ahumada PROF CHEM 8 (BAS METB)on Anion gap [Moles/Vol] 13.7 mmol/L Normal [facility] Comment on above: Performed By: #### BMP #### [facility] [address] [place] [address] Dr. Obdulia Ahumada Calcium [Mass/Vol] 9.1 mg/dL Normal 8.5-10.1 [facility] Comment on above: Performed By: #### BMP #### [facility] [address] [place] [address] Dr. Obdulia Ahumada Chloride [Moles/Vol] 103 mmol/L Normal 98-107 [facility] Comment on above: Performed By: #### BMP #### [facility] [address] [place] [address] Dr. Obdulia Ahumada CO2 [Moles/Vol] 26.5 mmol/L Normal 21.0-32.0 [facility] Comment on above: Performed By: #### BMP #### [facility] [address] [place] [address] Dr. Obdulia Ahumada Creatinine [Mass/Vol] 0.61 mg/dL Normal 0.55-1.02 [facility] Comment on above: Performed By: #### BMP #### [facility] [address] [address] [address] Obdulia Ahumada EGFR-AF GAMBIAN >60 Normal >=60 [facility] Comment on above: Performed By: #### BMP #### [facility] [address] [address] [address] Obdulia Ahumada EGFR-NON AF GAMBIAN >60 Normal >=60 [facility] Comment on above: Performed By: #### BMP #### [facility] [address] [address] [address] Obdulia Ahumada Glucose [Mass/Vol] 114 mg/dL Critically high 74-106 [facility] Comment on above: Performed By: #### BMP #### [facility] [address] [place] [address] Dr. Obdulia Ahumada Potassium [Moles/Vol] 4.2 mmol/L Normal 3.5-5.1 [facility] Comment on above: Performed By: #### BMP #### [facility] [address] [address] [address] Obdulia Ahumada Sodium [Moles/Vol] 139 mmol/L Normal 136-145 [facility] Comment on above: Performed By: #### BMP #### [facility] [address] [place] [address] Dr. Obdulia Ahumada Urea nitrogen [Mass/Vol] 8.0 mg/dL Normal 7.0-18.0 [facility] Comment on above: Performed By: #### BMP #### [facility] [address] [place] [address] Dr. Obdulia Ahumada Urea nitrogen/Creatin ine [Mass ratio] 13.1 mg/mg Normal [facility] Comment on above: Performed By: #### BMP #### [facility] [address] [place] [address] LUNG CANCER SCREENINGon [...] these two extremes (Agatston score 101-1000). https://pubs.rsna.org/doi/abs/10. 1148/radiol.51803426 Download the LungRADS Assessment Categories table at this site: http://www.acr.org/Quality-Safety /Resources/LungRADS Electronically authenticated by: STEPHANIE PADILLA Date: 2022-06-18 17:41 Normal [facility] CBC AUTO DIFFon 10-27-2021 BASO # 0.1 103/ul Normal 0.0-0.1 [facility] Comment on above: Performed By: #### CBC #### [facility] [address] [address] [address] Obdulia Ahumada Basophils/100 WBC (Bld) 0.6 % Normal 0.2-2.0 [facility] Comment on above: Performed By: #### CBC #### [facility] [address] [place] [address] Dr. Obdulia Ahumada EO # 0.1 103/ul Normal 0.0-0.7 [facility] Comment on above: Performed By: #### CBC #### [facility] [address] [place] [address] Dr. Obdulia Ahumada Eosinophils/100 WBC (Bld) 1.5 % Normal 0.9-7.0 [facility] Comment on above: Performed By: #### CBC #### [facility] [address] [place] [address] Dr. Obdulia Ahumada Erythrocyte distribution width (RBC) [Ratio] 13.7 % Normal 11.0-15.0 [facility] Comment on above: Performed By: #### CBC #### [facility] [address] [place] [address] Dr. Obdulia Ahumada Hematocrit (Bld) [Volume fraction] 43.0 % Normal 36.0-48.0 [facility] Comment on above: Performed By: #### CBC #### [facility] [address] [place] [address] Dr. Obdulia Ahumada Hemoglobin (Bld) [Mass/Vol] 13.7 g/dL Normal 12.0-16.0 [facility] Comment on above: Performed By: #### CBC #### [facility] [address] [place] [address] Dr. Obdulia Ahumada IG # 0.02 10e3/ul Normal 0.00-0.03 [facility] Comment on above: Performed By: #### CBC #### [facility] [address] [place] [address] Dr. Obdulia Ahumada IG % 0.2 % Normal 0.0-0.5 [facility] Comment on above: Performed By: #### CBC #### [facility] [address] [place] [address] Dr. Obdulia Ahumada LYMPH # 2.9 103/ul Normal 1.2-3.8 [facility] Comment on above: Performed By: #### CBC #### [facility] [address] [place] [address] Dr. Obdulia Ahumada Lymphocytes/100 WBC (Bld) 32.4 % Normal 20.5-60.0 [facility] Comment on above: Performed By: #### CBC #### [facility] [address] [place] [address] Dr. Obdulia Ahumada MANUAL DIFF REQ NO Normal [facility] Comment on above: Performed By: #### CBC #### [facility] [address] [place] [address] Dr. Obdulia Ahumada MCH (RBC) [Entitic mass] 29.4 pg Normal 26.7-34.0 [facility] Comment on above: Performed By: #### CBC #### [facility] [address] [place] [address] Dr. Obdulia Ahumada MCHC (RBC) [Mass/Vol] 31.9 g/dL Normal 29.9-35.2 [facility] Comment on above: Performed By: #### CBC #### [facility] [address] [place] [address] Dr. Obdulia Ahumada MCV (RBC) [Entitic vol] 92.3 fL Normal 81.0-99.0 [facility] Comment on above: Performed By: #### CBC #### [facility] [address] [place] [address] Dr. Obdulia Ahumada MONO # 0.6 103/ul Normal 0.3-0.8 [facility] Comment on above: Performed By: #### CBC #### [facility] [address] [place] [address] Dr. Obdulia Ahumada Monocytes/100 WBC (Bld) 7.2 % Normal 1.7-12.0 [facility] Comment on above: Performed By: #### CBC #### [facility] [address] [place] [address] Dr. Obdulia Ahumada NEUT # 5.2 103/ul Normal 1.4-6.5 [facility] Comment on above: Performed By: #### CBC #### [facility] [address] [place] [address] Dr. Obdulia Ahumada Neutrophils/100 WBC (Bld) 58.1 % Normal 43.0-75.0 [facility] Comment on above: Performed By: #### CBC #### [facility] [address] [place] [address] Dr. Obdulia Ahumada Platelet mean volume (Bld) [Entitic vol] 11.4 fL Normal 9.5-13.5 [facility] Comment on above: Performed By: #### CBC #### [facility] [address] [place] [address] Dr. Obdulia Ahumada PLT 241 103/ul Normal 150-450 [facility] Comment on above: Performed By: #### CBC #### [facility] [address] [place] [address] Dr. Obdulia Ahumada RBC 4.66 106/ul Normal 4.20-5.40 [facility] Comment on above: Performed By: #### CBC #### [facility] [address] [place] [address] Dr. Obdulia Ahumada WBC 8.9 103/ul Normal 4.0-11.0 [facility] Comment on above: Performed By: #### CBC #### [facility] [address] [place] [address] Dr. Obdulia Ahumada GLYCOHEMOGLOBIN A1Con 2021 ADA RECOMMENDATION SEE BELOW Normal [facility] Comment on above: Result Comment: ADA RECOMMENDED LIMIT 4. 0 - 6.0 ADA THERAPEUTIC TARGET < 7.0 ACTION SUGGESTED > 7.0 Performed By: #### A 1C #### [facility] [address] [place] [address] Dr. Obdulia Ahumada Glucose [Mass/Vol] 123 mg/dL Normal [facility] Comment on above: Performed By: #### A1C #### [facility] [address] [place] [address] Dr. Obdulia Ahumada HbA1c (Bld) [Mass fraction] 5.9 % Normal 4.5-6.2 [facility] Comment on above: Performed By: #### A1C #### [facility] [address] [place] [address] Dr. Obdulia Ahumada LIPID PROFILEon 10-27-2021 CHOL-HDL RATIO NORM SEE BELOW Normal [facility] Comment on above: Result Comment: 3.3 - 4.4 LOW RISK 4.4 - 7.1 AVERAGE RISK 7.1 - 11.0 MODERATE RISK >11.0 HIGH RISK Performed By: #### L IPID, CMP #### [facility] [address] [address] [address] Obdulia Ahumada Cholesterol [Mass/Vol] 185 mg/dL Normal <=200 [facility] Comment on above: Performed By: #### LIPID, CMP #### [facility] [address] [address] [address] Obdulia Ahumada Cholesterol in HDL [Mass/Vol] 54 mg/dL Normal 40-60 [facility] Comment on above: Performed By: #### LIPID, CMP #### [facility] [address] [place] [address] Dr. Obdulia Ahumada Cholesterol in LDL [Mass/Vol] 103.8 mg/dL Normal [facility] Comment on above: Performed By: #### LIPID, CMP #### [facility] [address] [address] [address] Obdulia Ahumada Cholesterol.tota l/Cholesterol in HDL [Mass ratio] 3.4 {ratio} Normal [facility] Comment on above: Performed By: #### LIPID, CMP #### [facility] [address] [place] [address] Dr. Obdulia Ahumada HDL NORMAL > or = 60 mg/dl - LO W CARDIOVASCULAR RISK <40 mg/dl - HIGH CARDIOVASCULAR RISK Normal [facility] Comment on above: Performed By: #### LIPID, CMP #### [facility] [address] [place] [address] Dr. Obdulia Ahumada LDL CALC NORMAL SEE BELOW Normal [facility] Comment on above: Result Comment: <100 mg/dl OPTIMAL 100 - 129 mg/dl NEAR OR ABOVE OPTIMAL 130 - 159 mg/dl BORDERLINE HIGH 160 - 189 mg/dl HIGH >190 mg/dl VERY HIGH Performed By: #### L IPID, CMP #### [facility] [address] [place] [address] Dr. Obdulia Ahumada Triglyceride [Mass/Vol] 136 mg/dL Normal <=150 [facility] Comment on above: Performed By: #### LIPID, CMP #### [facility] [address] [place] [address] Dr. Obdulia Ahumada VLDL CALC 27.2 mg/dL Normal [facility] Comment on above: Performed By: #### LIPID, CMP #### [facility] [address] [address] [address] Obdulia Ahumada MICROALBUMIN, RAND URon 06-0 mALB <1.3 Normal <=30.0 [facility] Comment on above: Performed By: #### MALBR #### [facility] [address] [place] [address] Dr. Obdulia Ahumada PROF 14(COMP METB)on 022 Albumin [Mass/Vol] 3.5 g/dL Normal 3.4-5.0 [facility] Comment on above: Performed By: #### LIPID, CMP #### [facility] [address] [place] [address] Dr. Obdulia Ahumada Albumin/Globulin [Mass ratio] 0.9 {ratio} Normal [facility] Comment on above: Performed By: #### LIPID, CMP #### [facility] [address] [place] [address] Dr. Obdulia Ahumada ALP [Catalytic activity/Vol] 113 U/L Normal 46-116 [facility] Comment on above: Performed By: #### LIPID, CMP #### [facility] [address] [place] [address] Dr. Obdulia Ahumada ALT [Catalytic activity/Vol] 13 U/L Critically low 14-59 [facility] Comment on above: Performed By: #### LIPID, CMP #### [facility] [address] [place] [address] Dr. Obdulia Ahumada Anion gap [Moles/Vol] 12.6 mmol/L Normal [facility] Comment on above: Performed By: #### LIPID, CMP #### [facility] [address] [place] [address] Dr. Obdulia Ahumada AST [Catalytic activity/Vol] 23 U/L Normal 15-37 [facility] Comment on above: Performed By: #### LIPID, CMP #### [facility] [address] [address] [address] Obdulia Ahumada Bilirubin [Mass/Vol] 0.4 mg/dL Normal 0.2-1.0 [facility] Comment on above: Performed By: #### LIPID, CMP #### [facility] [address] [address] [address] Obdulia Ahumada Calcium [Mass/Vol] 9.1 mg/dL Normal 8.5-10.1 [facility] Comment on above: Performed By: #### LIPID, CMP #### [facility] [address] [place] [address] Dr. Obdulia Ahumada Chloride [Moles/Vol] 104 mmol/L Normal 98-107 [facility] Comment on above: Performed By: #### LIPID, CMP #### [facility] [address] [place] [address] Dr. Obdulia Ahumada CO2 [Moles/Vol] 29.6 mmol/L Normal 21.0-32.0 [facility] Comment on above: Performed By: #### LIPID, CMP #### [facility] [address] [place] [address] Dr. Obdulia Ahumada Creatinine [Mass/Vol] 0.60 mg/dL Normal 0.55-1.02 [facility] Comment on above: Performed By: #### LIPID, CMP #### [facility] [address] [place] [address] Dr. Obdulia Ahumada EGFR-AF GAMBIAN >60 Normal >=60 [facility] Comment on above: Performed By: #### LIPID, CMP #### [facility] [address] [place] [address] Dr. Obdulia Ahumada EGFR-NON AF GAMBIAN >60 Normal >=60 [facility] Comment on above: Performed By: #### LIPID, CMP #### [facility] [address] [place] [address] Dr. Obdulia Ahumada Globulin (S) [Mass/Vol] 4.0 g/dL Normal [facility] Comment on above: Performed By: #### LIPID, CMP #### [facility] [address] [address] [address] Obdulia Ahumada Glucose [Mass/Vol] 103 mg/dL Normal 74-106 [facility] Comment on above: Performed By: #### LIPID, CMP #### [facility] [address] [address] [address] Obdulia Ahumada Potassium [Moles/Vol] 4.2 mmol/L Normal 3.5-5.1 [facility] Comment on above: Performed By: #### LIPID, CMP #### [facility] [address] [address] [address] Obdulia Ahumada Protein [Mass/Vol] 7.5 g/dL Normal 6.4-8.2 [facility] Comment on above: Performed By: #### LIPID, CMP #### [facility] [address] [place] [address] Dr. Obdulia Ahumada Sodium [Moles/Vol] 142 mmol/L Normal 136-145 [facility] Comment on above: Performed By: #### LIPID, CMP #### [facility] [address] [place] [address] Dr. Obdulia Ahumada Urea nitrogen [Mass/Vol] 9.0 mg/dL Normal 7.0-18.0 [facility] Comment on above: Performed By: #### LIPID, CMP #### [facility] [address] [place] [address] Dr. Obdulia Ahumada Urea nitrogen/Creatin ine [Mass ratio] 15.0 mg/mg Normal [facility] Comment on above: Performed By: #### LIPID, CMP #### [facility] [address] [place] [address] Dr. Obdulia Ahumada UA RANDOM W/MICROSCOPICon BACTERIA TRACE Abnormal NONE SEEN [facility] Comment on above: Performed By: #### UAMIC #### [facility] [address] [place] [address] Dr. Obdulia Ahumada Bilirubin Ql (U) Negative Normal NEGATIVE [facility] Comment on above: Performed By: #### UAMIC #### [facility] [address] [place] [address] Dr. Obdulia Ahumada CAST NONE SEEN Normal NONE SEEN [facility] Comment on above: Performed By: #### UAMIC #### [facility] [address] [place] [address] Dr. Obdulia Ahumada Clarity (U) CLEAR Normal CLEAR [facility] Comment on above: Performed By: #### UAMIC #### [facility] [address] [place] [address] Dr. Obdulia Ahumada Color (U) LT. YELLOW Normal YELLOW [facility] Comment on above: Performed By: #### UAMIC #### [facility] [address] [place] [address] Dr. Obdulia Ahumada Crystals LM Nom (Urine sed) NONE SEEN Normal NONE SEEN [facility] Comment on above: Performed By: #### UAMIC #### [facility] [address] [place] [address] Dr. Obdulia Ahumada Epithelial cells LM Ql (Urine sed) FEW Abnormal NONE SEEN /RARE [facility] Comment on above: Performed By: #### UAMIC #### [facility] [address] [place] [address] Dr. Obdulia Ahumada Glucose Ql (U) Negative Normal NEGATIVE [facility] Comment on above: Performed By: #### UAMIC #### [facility] [address] [place] [address] Dr. Obdulia Ahumada Hemoglobin Ql (U) Negative Normal NEGATIVE [facility] Comment on above: Performed By: #### UAMIC #### [facility] [address] [place] [address] Dr. Obdulia Ahumada Ketones Ql (U) Negative Normal NEGATIVE [facility] Comment on above: Performed By: #### UAMIC #### [facility] [address] [place] [address] Dr. Obdulia Ahumada LEUKOCYTES LARGE Abnormal NEGATIVE [facility] Comment on above: Performed By: #### UAMIC #### [facility] [address] [place] [address] Dr. Obdulia Ahumada MUCOUS NONE SEEN Normal NONE SEEN [facility] Comment on above: Performed By: #### UAMIC #### [facility] [address] [place] [address] Dr. Obdulia Ahumada Nitrite Ql (U) Negative Normal NEGATIVE [facility] Comment on above: Performed By: #### UAMIC #### [facility] [address] [place] [address] Dr. Obdulia Ahumada pH (U) 7.5 [pH] Normal 5-9 [facility] Comment on above: Performed By: #### UAMIC #### [facility] [address] [place] [address] Dr. Obdulia Ahumada RBC NONE SEEN Abnormal 0-2 [facility] Comment on above: Performed By: #### UAMIC #### [facility] [address] [address] [address] Obdulia Ahumada SPEC GRAVITY 1.015 Normal 1.005-<=1. 025 [facility] Comment on above: Performed By: #### UAMIC #### [facility] [address] [place] [address] Dr. Obdulia Ahumada TRICH SEEN Abnormal NONE SEEN [facility] Comment on above: Performed By: #### UAMIC #### [facility] [address] [place] [address] Dr. Obdulia Ahumada UA PROTEIN Negative Normal NEGATIVE/ TRACE [facility] Comment on above: Performed By: #### UAMIC #### [facility] [address] [place] [address] Dr. Obdulia Ahumada Urobilinogen Qn (U) 1.0 {Diaz'U}/dL Normal 0.2 - 1.0 [facility] Comment on above: Performed By: #### UAMIC #### [facility] [address] [place] [address] Dr. Obdulia Ahumada WBC 2-5 Abnormal NONE SEEN [facility] [facility] Comment on above: Performed By: #### UAMIC #### [facility] [address] [place] [address] Dr. Obdulia Ahumada Cardiovascular Lab Reporton 04-04-2018 Cardiovascular Lab Report [facility] Patient Name: Alia Page MR #: [id number] Physician: Florinda Clancy M.D.Department of Service Date: 04/03/2018Medicine Birthdate: 1965Division of Room #: [facility]3][facility]ovascularBannervicB[facility]ptowner[address] ReeseC[place], [place] [address]Fjoar Fax Cardiovascular Laboratory ReportFINAL IMPRESSIONS:1. Moderate angiographic, hemodynamically non-significant stenosis of the left anterior descending as assessed by instantaneous wave-free ratio (iFR).2. Moderate angiographic, hemodynamically non-significant stenosis of the right coronary artery as assessed by instantaneous wave-free ratio (iFR).3. Zlnx-qo-bodzfvpx disease of the left circumflex coronary artery.4. [...] will be referred to pulmonology in our [facility] given her symptoms of resting hypoxia and need for further evaluation and management.5. Follow up with [facility] [place] as scheduled.6. Follow up with me in the [facility] in the next 1 to 2 months.PROCEDURES: Limited femoral angiography, bilateral selective coronaryangiography, right heart catheterization, instantaneous wave-free ratio ofthe left anterior descending coronary artery, instantaneous wave-free ratioof the right coronary artery, placement of a 6-South African MynxGrip closuredevice.METHODS: After risks, benefits, and alternatives were explained, writteninformed consent was obtained. The patient was prepped and draped in usualsterile fashion over the right groin. Using 1% lidocaine solution, localinfiltration anesthesia was achieved. Using a modified Seldingertechnique, access to the right common femoral vein and artery was obtainedwith 6-South African 11 cm sheath was placed in each.Baseline [...] physiological assessment of the moderate stenosis visualized.A 6-South African XB 3.0 guide catheter was advanced over [...] wire trauma. The guide catheter was removed.A 6-South African JR4 guide catheter was advanced in and [...] She was to be transferred to the [facility] area instable condition.FINDINGS:Hemodynamics:1 . RA 7.2. RV [...] midportion of the vessel adjacent to a djmmc-cy-zhsredwf sized 3rd diagonal branch. Instantaneous fractional ratio [...] 04/03/2018/10:55 Carole/Florinda Clancy M.D.Date Trans: 04/04/2018 05:07 A/Romaine:[id number]: Ana Cox N.P. [facility], [address] [place] [id number] [facility] Encounters Encounter Date Encounter Type Care Provider Facility Start: 01-15-2024 End: 01-15-2024 ambulatory [facility] Start: 12-14-2023 End: 12-14-2023 ambulatory [facility] Start: 12-13-2023 End: 12-13-2023 ambulatory ANA AICHHOLZ Not Available Start: 11-23-2023 End: 11-23-2023 ambulatory [facility] Start: 11-14-2023 End: 11-14-2023 ambulatory [facility] Start: 11-02-2023 End: 11-02-2023 ambulatory [facility] Start: 10-12-2023 End: 10-12-2023 ambulatory ANA AICHHOLZ Not Available Start: 09-11-2023 End: 09-11-2023 ambulatory ANA AICHHOLZ Not Available Start: 06-28-2022 End: 06-29-2022 ambulatory [facility]PECT[facility] ANA AICHHOLZ Facility:[facility] Start: 06-17-2022 End: 06-18-2022 ambulatory DARKLIGHT INSPECTOR ANA AICHHOLZ Facility:[facility] Start: 11-04-2021 ambulatory DARKLIGHT INSPECTOR ANA AICHHOLZ Facil ity:[facility] Start: 10-27-2021 End: 10-28-2021 ambulatory DARKLIGHT INSPECTOR ANA AICHHOLZ Facility:[facility] Start: 07-27-2021 ambulatory DARKLIGHT INSPECTOR ANA AICHHOLZ Facil ity:[facility] Start: 04-03-2018 End: 04-04-2018 Patient encounter procedure FLORINDA CLANCY Facility:[facility] Start: 03-22-2018 End: 03-23-2018 Patient encounter procedure DEFAULT PHYSICIAN Facility:[facility] Procedures Date Procedure Procedure Detail Performing Clinician Start: 01-15-2024 Follow-up visit Follow-up DAVID HERNANDEZ Payers Date Payer Category Payer Self-pay [id number] 1965 Unknown [id number] 2.16.8 [id number] 1965 Unknown [id number] 2.16.8 40.1.770452.3.579.2.647 1966 Unknown [id number] 2.16.84 0.1.584895.3.579.2.593 1966 Unknown [id number] 2.16.84 0.1.758267.3.579.2.593 1966 Unknown [id number] 2.16.84 0.1.663281.3.579.2.593 1966 Unknown [id number] 2.16.84 0.1.397448.3.579.2.593 1966 Unknown [id number] 2.16.84 0.1.941522.3.579.2.593 1966 Unknown [id number] 2.16.8 40.1.051830.3.579.2.1286 1966 Unknown [id number] 2.16.84 0.1.174700.3.579.2.1259 1966 Unknown [id number] 2.16.84 0.1.917052.3.579.2.1259 1966 Unknown [id number] 2.16.84 0.1.270654.3.579.2.1259 1966 Unknown [id number] 2.16.8 40.1.290239.3.579.2.1286 1966 Unknown [id number] 2.16.8 40.1.491380.3.579.2.1286 1966 Unknown [id number] 2.16.8 40.1.010922.3.579.2.1286 1966 Unknown [id number] 2.16.8 40.1.938293.3.579.2.1286 1959 Unknown [id number] Unknown Summary Purpose Family History No Family [...] section and content) DATE CREATED AUTHOR 05/06/2018 [facility] DATE CREATED AUTHOR AUTHOR'S ORGANIZ ATION 06/29/[address] [facility] DATE CREATED AUTHOR AUTHOR'S ORGANIZ ATION 11/28/2023 [facility] DATE CREATED AUTHOR AUTHOR'S ORGANIZ ATION 12/16/[address] [facility] DATE CREATED AUTHOR AUTHOR'S ORGANIZ ATION 12/17/2023 [facility] DATE CREATED AUTHOR AUTHOR'S ORGANIZ ATION 01/16/2024 [facility] FOR RECORDS PERTAINING TO PATIENTS WHO ARE [...] BE BASED ON THE PRIMARY CLINICAL RECORDS. [facility] [employer] [facility]. provides no warranty or guarantee of the accuracy or completeness of information in this document.
[2024-03-07 11:27] LABS: Estimated Average Glucose 120 mg/dL; Glycohemoglobin A1C 5.8 % (4.5-6.2)
== END 2024-03-07 10:41 | disposition home or self-care (01) ==
LOC: LAB 10:40
PROVIDERS: PCP Nurse Practitioner; Visit Provider Nurse Practitioner
DX: E11.9 Type 2 diabetes mellitus without complications (principal); Z12.11 Encounter for screening for malignant neoplasm of colon
CPT/HCPCS: 36415; 83036